=== PATIENT | female | born 1965 | race Hispanic/Latino ===

== ENCOUNTER 2018-01-26 17:20 | Observation (INO) | payer OTHER ==
[~2018-01-26] VITALS: Ht 165.1 cm; Wt 99.2 kg
[2018-01-26 18:03] LABS: BASOPHILS % (AUTO) 0.8 % (0.0-5.0); EOSINOPHILS % (AUTO) 4.1 % (0.0-8.0); HEMATOCRIT 46.4 % (36-48); LYMPHOCYTES % (AUTO) 30.2 % (21.0-51.0); MEAN CORPUSCULAR HGB CONC 33.3 g/dL (32.0-36.0); MEAN CORPUSCULAR VOLUME 87.1 fL (79-99); MONOCYTES % (AUTO) 7.5 % (3.0-13.0); NEUTROPHILS % (AUTO) 57.4 % (40.0-77.0); PLATELET COUNT (AUTO) 277 K/uL (130-400); RED BLOOD CELL COUNT(AUTO) 5.32 MIL/uL (4.00-5.50); RED CELL DISTRIBUTION WIDTH 13.2 % (11.0-15.5); WHITE BLOOD COUNT (AUTO) 11.7 K/uL (4.8-10.8)
[2018-01-26 18:06] LABS: APPEARANCE,URINE Clear (CLEAR); BILIRUBIN,URINE Negative (NEGATIVE); COLOR,URINE Yellow (YELLOW); GLUCOSE, URINE (UA) Negative (NEGATIVE); KETONES,URINE Trace mg/dL (NEGATIVE); LEUKOCYTE ESTERASE ,URINE Negative (NEGATIVE); NITRATE,URINE Negative (NEGATIVE); OCCULT BLOOD,URINE Negative (NEGATIVE); PH,URINE 6.5 (5.0-8.0); PROTEIN,URINE Trace (NEGATIVE)
[2018-01-26 18:18] LABS: CREATININE 0.9 mg/dL (0.5-1.5); POTASSIUM 3.8 mmol/L (3.5-5.1)
[2018-01-26 18:23] LABS: ALBUMIN 3.7 g/dL (3.5-5.0); BILIRUBIN,TOTAL 0.5 mg/dL (0.2-1.0)
[2018-01-26 18:24] LABS: BACTERIA,URINE Few /HPF (None Seen); RBC,URINE 0-1 /HPF (0-1); SQUAMOUS EPITHELIAL CELL,UR Few /HPF (0-2); WBC,URINE 0-1 /HPF (0-1)
[2018-01-26] MEDS ORDERED: DiphenhydrAMINE HCL 50 MG/ML VIAL ONE (18:45)
[2018-01-26] MEDS ORDERED: ONDANSETRON HCL 4 MG/2 ML VIAL ONE (18:45)
[2018-01-26] MEDS ORDERED: METOCLOPRAMIDE 10 MG TABLET ONE (18:57)
[2018-01-26] MEDS ORDERED: HYDROMORPHONE HCL 0.5 MG/0.5 ML ML ONE ×2 (20:29→23:49)
[2018-01-26] MEDS ORDERED: KETOROLAC TROMETHAMINE 15MG/ML ONE (20:29)
[2018-01-26] MEDS ORDERED: SODIUM CHLORIDE 0.9% 1000ML 1,000 ML IV ONE (20:52)
[2018-01-26] MEDS ORDERED: MECLIZINE HCL 25 MG TABLET ONE (23:49)
[2018-01-26] MEDS ORDERED: METHYLPREDNISOLONE SOD SUCC 125MG/2ML VIAL ONE (23:49)
[2018-01-27] MEDS ORDERED: GADOBENATE DIMEGLUMINE 20 ML IV ONE (10:26)
[2018-01-27] MEDS ORDERED: KETOROLAC TROMETHAMINE 15MG/ML ONE (16:07)
[2018-01-27] MEDS ORDERED: LACTULOSE 20 GM/30 ML UDCUP ONE (16:07)
[2018-01-27] MEDS ORDERED: SODIUM CHLORIDE 0.9% 1000ML 1,000 ML IV ONE (16:20)
[2018-01-27 17:05] VITALS: BP 135/77
[2018-01-27] MEDS ORDERED: METF10004 PO (17:53)
[2018-01-27] MEDS ORDERED: DICL100G27 TP (17:53)
[2018-01-27] MEDS ORDERED: NABU750T2 PO (17:53)
[2018-01-27] MEDS ORDERED: FAMO40TA7 PO (17:53)
[2018-01-27] MEDS ORDERED: SUMA100T16 PO (17:53)
[2018-01-27] MEDS ORDERED: MECL12.585 PO (17:53)
[2018-01-27] MEDS ORDERED: DEXTROSE 50%-WATER 50 ML DISP.SYRIN IV PRN (19:15)
[2018-01-27] MEDS: SODIUM CHLORIDE 0.9% 1000ML 1,000 ML IV SCH (19:15)
[2018-01-27] MEDS ORDERED: MORPHINE SULFATE 4 MG/1ML SYG IVP PRN (19:15)
[2018-01-27] MEDS ORDERED: CLONIDINE HCL 0.1 MG TABLET PO PRN (19:15)
[2018-01-27] MEDS ORDERED: GLUCAGON 1MG KIT 1 MG ML IM PRN (19:15)
[2018-01-27] MEDS ORDERED: LACTULOSE 20 GM/30 ML UDCUP PO PRN (19:15)
[2018-01-27] MEDS ORDERED: ONDANSETRON HCL MDV 20ML 2 MG/ML VIAL IVP PRN (19:15)
[2018-01-27] MEDS ORDERED: ACETAMINOPHEN 325 MG TAB PO PRN (19:15)
[2018-01-27] MEDS ORDERED: KETOROLAC TROMETHAMINE 15MG/ML IV PRN (19:15)
[2018-01-27 20:00] VITALS: BP 131/65
[2018-01-27] MEDS: INSULIN R PO SSI SQ SCH (21:00)
[2018-01-28] VITALS: BP 136/66
[2018-01-28] MEDS: SODIUM CHLORIDE 0.9% 1000ML 1,000 ML IV SCH ×3 (01:34→15:16)
[2018-01-28 03:49] VITALS: BP 119/63
[2018-01-28] MEDS: INSULIN R NPO SS1 SQ SCH ×4 (06:00→16:29)
[2018-01-28] MEDS: INSULIN R PO SSI SQ SCH ×3 (06:33→16:29)
[2018-01-28 07:50] VITALS: BP 139/61
[2018-01-28 07:53] LABS: HEMOGLOBIN A1C 5.7 % (4.0-6.0)
[2018-01-28] MEDS ORDERED: FAMOTIDINE 20MG TAB 20 MG TAB PO SCH (09:00)
[2018-01-28] MEDS: ACETAMINOPHEN 325 MG TAB PO PRN ×2 (09:28→13:45)
[2018-01-28 11:37] VITALS: BP 113/74
[2018-01-28 16:26] VITALS: BP 119/60
[2018-01-28] MEDS ORDERED: MECLIZINE HCL 12.5 MG TABLET PO PRN (18:15)
[2018-01-29] MEDS ORDERED: NABUMETONE 750 MG PO SCH (07:30)
[2018-01-29] MEDS ORDERED: NON-FORMULARY MEDICATION 1 EACH (Famotidine 40 MG) PO SCH (09:00)
[2018-01-29] MEDS ORDERED: NON-FORMULARY MEDICATION 1 EACH (Diclofenac Sodium 100 GM) TP SCH (09:00)
[2018-01-29] MEDS ORDERED: METFORMIN HCL 500 MG TABLET PO SCH (09:00)
== END 2018-01-28 19:01 | disposition home or self-care (01) ==
LOC: EDH 17:20 → EDHIP 01-27 16:00 → 4AH 01-27 16:48
PROVIDERS: ADMIT Family Medicine; ATTEND Family Medicine
DX: G43.919 Migraine, unspecified, intractable, without status migrainosus (principal); J45.909 Unspecified asthma, uncomplicated; R73.9 Hyperglycemia, unspecified; H53.149 Visual discomfort, unspecified; I10 Essential (primary) hypertension; Z90.49 Acquired absence of other specified parts of digestive tract; Z90.710 Acquired absence of both cervix and uterus; Z88.5 Allergy status to narcotic agent; Z80.9 Family history of malignant neoplasm, unspecified
CPT/HCPCS: 36415 ×2; 70450; 70553; 80053; 81001; 82948 ×5; 83036; 84443; 85025; 85651; 96361; 96374; 96375; 99285; A9577; G0378 ×27; J1170 ×2; J1200; J1885 ×3; J2405; J2930; J7030 ×3

== ENCOUNTER → 2018-10-29 | Outpatient (CLI) | payer OTHER ==
[~2018-10-29] MED LIST: DICL100G27 TP; FAMO40TA7 PO; LIDOCAINE HCL 1% 20 ML VIAL ONE; MECL12.585 PO; METF-446 PO; NABU750T2 PO; SODIUM BICARB 50MEQ 50ML VIAL ONE; SUMA100T16 PO
[2018-10-29 09:04] LABS: INR 0.93 (0.85-1.15); PROTHROMBIN TIME 9.8 SEC (9.6-11.6)
--- NOTE | 2018-10-29 09:45 | NUR ---
U/S GD LEFT BREAST BX PROCEDURE PERFORMED BY DR MENDOZA. PUNCTURE SITE LEFT BREAST AND PATIENT TOLERATED PROCEDURE WELL. SPECIMEN X 1 COLLECTED AND SENT TO LAB. END OF PROCEDURE AT 0950. BIOPSY NEEDLE REMOVED AND DRESSING APPLIED. NO BLEEDING NOTED. DISCHARGE INSTRUCTIONS GIVEN TO PATIENT AND VERBALIZED UNDERSTANDING. DISCHARGED AMBULATORY, STABLE, AAO X3 WITH NO C/O PAIN.
== END | disposition home or self-care (01) ==
LOC: RAH 07:59
PROVIDERS: ATTEND Family Medicine
DX: N60.02 Solitary cyst of left breast (principal); N64.89 Other specified disorders of breast; N63.24 Unspecified lump in the left breast, lower inner quadrant; E78.5 Hyperlipidemia, unspecified; J45.909 Unspecified asthma, uncomplicated; F41.9 Anxiety disorder, unspecified; I10 Essential (primary) hypertension; Z98.890 Other specified postprocedural states; Z79.899 Other long term (current) drug therapy
CPT/HCPCS: 19083; 36415; 85610; 87070; 87076; 87205; 88305; A4215 ×2; J3490; 76942